=== PATIENT | male | born 1960 | race Caucasian/White ===

== ENCOUNTER 2022-08-11 09:16 | Emergency (ER) | payer OTHER, SELFPAY ==
[2022-08-11 09:17] VITALS: BP 107/66; PULSE 64; RESP 17; TEMP 36.1; O2SAT 97; BMI 40.8
--- NOTE | 2022-08-11 09:31 | EDS_ITS ---
HPI History of Present Illness Chief Complaint: Upper Extremity Injury Detail of Chief Complaint: Injury to right small finger Informant: patient Narrative Narrative: Patient presents to the emergency department with an injury to the right small finger. Patient states that he crushed it while at work between 2 metal objects. Patient is right-hand dominant. Patient unsure of his last tetanus. Patient does not want to file this under Workmen's Comp. and states that he will pay for it. Tetanus Immunization: Unknown PFSH PFSH Home Medications phenytoin sodium extended 100 mg capsule 100 mg PO DAILY 03/17/16 [History Last Taken Unknown] sulfamethoxazole 800 mg-trimethoprim 160 mg tablet 1 tab PO BID ##20 03/17/16 [Rx Last Taken Unknown] cephalexin 500 mg capsule 500 mg PO Q6 #40 CAPSULES 08/11/22 [Rx Last Taken Unknown] hydrocodone-acetaminophen 5-325mg 5mg-325mg 1 tab PO Q4H PRN PRN Pain 2 days #15 TABLETS 08/11/22 [Rx Last Taken Unknown] Allergy/AdvReac Type Severity Reaction Status Date / Time No Known Allergies Allergy Verified 08/11/22 09:16 Social History Smoking Status: Never smoker ROS ROS ED Review of Systems ROS Unobtainable: other Constitutional Constitutional ED: Reports lethargy; Denies chills, fever(s), sweats or weight loss Eyes Eyes: Denies blurry vision, change in vision or diplopia ENT ENT ED: Denies rhinorrhea or sore throat Cardiovascular Cardiovascular: Denies chest pain, orthopnea or racing heartbeat Respiratory/Chest Respiratory/Chest: Denies cough, dyspnea, dyspnea on exertion, orthopnea or sputum Gastrointestinal Gastrointestinal: Denies abdominal pain, diarrhea, nausea or vomiting Genitourinary Genitourinary ED: Denies dysuria, hematuria or urinary frequency Musculoskeletal Musculoskeletal: Reports other Details: Injury right small finger with lacerations ; Denies arthralgias, back pain, myalgias or neck pain Integumentary Denies abscess, Abrasions or rash Neurologic Neurologic: Denies headache(s) or weakness Psychiatric Psychiatric: Denies anxiety, depression or suicidal thoughts Endocrine Endocrinology: Denies polydipsia, polyphagia or polyuria Hematologic/Lymphatic Hematologic/Lymphatic: Denies easy bleeding, easy bruising or lymphadenopathy Allergic/Immunologic Allergic/Immunologic ED: Denies mouth swelling, tongue swelling or urticaria EXAM Physical Exam Const Vital Signs: 08/11/22 09:17 Temperature 96.9 F L Temperature Source Temporal Pulse Rate 64 Respiratory Rate 17 Blood Pressure 107/66 Blood Pressure Mean 79 Pulse Ox 97 Oxygen Delivery Method Room Air Positive well nourished and well developed General Appearance ED: well developed and NAD HEENT Reports TM's clear and moist mucous membranes normocephalic and atraumatic; Negative for trauma or tenderness Tympanic Membrane ED: Yes TM's clear Eyes PERRL and EOMs intact bilaterally General Eye ED: Negative for pale conjunctiva or scleral icterus Neck no lymphadenopathy, supple and no JVD General: Negative for tenderness Chest Wall inspection of chest normal and palpation of chest normal Chest: Negative for tenderness Resp normal respiratory effort and clear to auscultation bilaterally Effort and Inspection: Negative for respiratory distress or pain with movement Auscultation: Negative for rhonchi, wheezes or diminished lung sounds Cardio regular rate, regular rhythm, S1 normal heart sound, S2 normal heart sound and no murmurs Peripheral Pulses: pulses 2+ throughout GI normal to inspection, nondistended, normoactive bowel sounds, soft to palpation, non-tender, non-distended and no masses Back/Spine no CVA tenderness and no thoracic nor lumbar tenderness Extremity Extremity Narrative: Right small finger-patient has laceration over the dorsal and volar aspect of the proximal phalanx of the small finger. The laceration on the dorsal surface measures 2.5 cm and the on the volar surface 3 cm. There are some rotational deformity noted. Decreased ability to flex and extend the digits secondary to pain and deformity. He is neurovascular intact. No significant active bleeding noted. General Extremety ED: Negative for edema General Extremity: Negative for edema Neuro oriented x3, CN's II-XII intact bilaterally, no sensory deficits noted and gait normal Sensorium / Orientation: awake, alert, oriented to person, oriented to place and oriented to time Motor Exam: strength 5/5 throughout and strength abnormal Psych mental status grossly normal Skin no rashes or lesions noted and no wounds MDM MDM MDM Narrative Medical decision making narrative: Patient will receive Ancef 1 g IV. Patient is noted to have open fracture of proximal phalanx on x-ray. Please see laceration repair note. I did not appreciate any tendon involvement as far as extensor or flexor tendon. He has good strength against resistance. He had a clean dressing applied. He was given Ancef 1 g IV and tetanus booster. I will refer him to orthopedics for follow-up. He was placed in aluminum splint. He will be given work restrictions. Procedures Lacerations Right small finger lacerations: Length: 2.17 in Depth: Sub Q Shape: Linear Prep: Sterile Conditions Laceration repair: Digital block, Irrigated, Lidocaine and Skin sutures Irrigated (ml): 200 Number of Sutures/[place]: 10 Suture Information: Simple and 5-0 Discharge Plan Triage Chief Complaint: Upper Extremity Injury ED Provider: Carmina Mae Dx/Rx/DC Orders Clinical Impression: Open fracture of finger, Finger laceration Prescriptions: New hydrocodone-acetaminophen [hydrocodone-acetaminophen] 5-325 mg tablet 1 tab PO Q4H PRN PRN (Reason: Pain) 2 Days Qty: 15 0RF cephalexin [cephalexin] 500 mg capsule 500 mg PO Q6 Qty: 40 0RF No Action phenytoin sodium extended 100 MG capsule 100 mg PO DAILY sulfamethoxazole-trimethoprim 1 TABLET tablet 1 tab PO BID Qty: 20 0RF Primary Care Provider: Corey Morse Referrals: Corey Morse DO [Primary Care Provider] - Jones Bernardo MD [Med Staff - Active Staff] - 10 Day for suture removal Disposition Disposition: Home, Self Care
--- NOTE | 2022-08-11 09:40 | RAD_ITS ---
STUDY: X-RAY - RIGHT HAND, ATTENTION FIFTH FINGER REASON FOR EXAM: Male, 62 years old. Injury TECHNIQUE: 3 view(s) of the finger were obtained. COMPARISON: None. FINDINGS: Normal metacarpal head. Normal metacarpophalangeal joint. Nondisplaced, fracture through the base of the proximal phalanx of the fifth digit. Normal middle phalanx. Normal distal phalanx. Normal proximal interphalangeal joint. Normal distal interphalangeal joint. Soft tissue swelling. RAD/Finger(s) Min 2 Views IMPRESSION: Comminuted nondisplaced fracture at the base of the proximal phalanx of the fifth digit with overlying soft tissue swelling. Electronically Signed: Kunal Mccloud MD at 10:09 EDT ,
[2022-08-11 10:40] VITALS: RESP 16
[2022-08-11] MEDS: Diphth,Pertuss(Acell),Tet Vac 0.5 ML Vial IM (10:41)
[2022-08-11] MEDS: Cefazolin 1 GM/50 ML BAG IV (10:41)
[2022-08-11] MEDS: Lidocaine 1% (20 ml mdv) 20 ML Vial 8 ML INFILT (10:42)
--- NOTE | 2022-08-11 11:04 | RAD_ITS ---
STUDY: X-RAY - RIGHT HAND, ATTENTION FIFTH FINGER REASON FOR EXAM: Male, 62 years old. Post reduction TECHNIQUE: 3 view(s) of the finger were obtained. COMPARISON: None. FINDINGS: Normal metacarpal head. Normal metacarpophalangeal joint. Persistent comminuted fracture of the proximal phalanx of the fifth digit. Residual volar angulation at fracture site. Normal middle phalanx. Normal distal phalanx. Normal proximal interphalangeal joint. Normal distal interphalangeal joint. RAD/Finger(s) Min 2 Views IMPRESSION: Residual ventral angulation at the level of the fracture site in the proximal phalanx. Electronically Signed: Kunal Mccloud MD at 12:07 EDT ,
== END 2022-08-11 11:40 | disposition home or self-care (01) ==
PROVIDERS: Emergency Provider Emergency Medicine; PCP Family Medicine; Visit Provider Emergency Medicine
DX: S62.606A Fracture of unspecified phalanx of right little finger, initial encounter for closed fracture (principal); S61.216A Laceration without foreign body of right little finger without damage to nail, initial encounter; W23.0XXA Caught, crushed, jammed, or pinched between moving objects, initial encounter; Z23 Encounter for immunization
CPT/HCPCS: 12001; 73140; 90471; 90715; 96365; 99284; A4216

== ENCOUNTER 2024-03-06 14:34 | Emergency (ER) | payer SELFPAY ==
[2024-03-06 14:35] VITALS: BP 140/80; PULSE 87; RESP 17; TEMP 36.3; O2SAT 96; BMI 40.4
--- NOTE | 2024-03-06 15:37 | EDS_ITS ---
HPI History of Present Illness Chief Complaint: Anxiety Informant: patient Onset/Context/Timing Onset: Weeks (1) Context: Gradual Onset Timing: Continuous Quality: Anxious Location: Generalized Worsened by: Nothing Relieved by: Nothing Narrative Narrative: Patient presents with insomnia and anxiety that has been getting progressively worse over the past week. Patient states it is gradually getting worse. Patient states he has been on lorazepam in the past for this but states his doctor did not want to continue prescribing it long-term. Patient states nothing makes his symptoms worse and nothing makes it better. Patient denies any recent fevers or chills. Patient denies any chest pain or shortness of breath. Patient denies any nausea or vomiting. Patient states he needs some blood tests and an IV and thinks that this will help. [facility] Medical History (Updated 03/06/24 @ 19:[address] Riaz Da Silva DO) Fracture of proximal phalanx of right little finger Seizure disorder Allergy/AdvReac Type Severity Reaction Status Date / Time No Known Allergies Allergy Verified 03/06/24 14:36 Surgical History (Updated 03/06/24 @ 17:[address] Riaz Da Silva DO) History of total right knee replacement Social History Smoking Status: Never smoker ROS ROS ED Constitutional Constitutional ED: Denies chills or fever(s) Eyes Eyes: Denies blurry vision or change in vision ENT ENT ED: Denies rhinorrhea or sore throat Cardiovascular Cardiovascular: Denies chest pain or palpitations Respiratory/Chest Respiratory/Chest: Reports cough; Denies dyspnea Gastrointestinal Gastrointestinal: Denies nausea or vomiting Genitourinary Genitourinary ED: Denies dysuria or hematuria Musculoskeletal Musculoskeletal: Denies back pain or neck pain Integumentary Denies abscess or rash Neurologic Neurologic: Denies headache(s) or weakness Psychiatric Psychiatric: Reports anxiety; Denies suicidal ideation or suicidal thoughts Allergic/Immunologic Allergic/Immunologic ED: Denies mouth swelling or urticaria EXAM Physical Exam Const Vital Signs: 03/06/24 14:35 03/06/24 16:34 03/06/24 18:00 Temperature 97.4 F L Temperature Source Temporal Pulse Rate 87 68 71 Respiratory Rate 17 19 H 12 Blood Pressure 140/80 H 147/90 H 153/87 H Blood Pressure Mean 100 109 109 Pulse Ox 96 97 96 Oxygen Delivery Method Room Air Room Air Positive well nourished, well developed and obese General Appearance ED: well developed and NAD Nutritional Appearance: obese HEENT Reports moist mucous membranes Neck supple and no JVD Resp normal respiratory effort and clear to auscultation bilaterally Cardio regular rate and regular rhythm GI non-tender and non-distended Palpation: soft Extremity normal to inspection General Extremety ED: Negative for edema or tenderness General Extremity: Negative for edema Neuro oriented x3, CN's II-XII intact bilaterally and no sensory deficits noted Sensorium / Orientation: alert Motor Exam: strength 5/5 throughout Psych Mood & Affect: anxious Skin no rashes or lesions noted MDM MDM MDM Narrative Medical decision making narrative: Differential diagnosis included anxiety, back pain, dehydration, electrolyte abnormality, and anemia. CBC will be obtained to assess for leukocytosis and anemia. Basic metabolic profile will be obtained to assess for electrolyte abnormality and renal function. Lab Data Attestation: I reviewed the patient's lab results. Lab results narrative: CBC was reviewed and was within normal limits. Basic metabolic profile was reviewed and was within normal limits. Labs: Laboratory Results - last 24 hr 03/06/24 16:23 WBC 7.0 RBC 4.96 Hgb 14.5 Hct 43.0 MCV 86.7 MCH 29.2 MCHC 33.7 RDW Std Deviation 40.9 RDW Coeff of Edel 13.2 Plt Count 261 MPV 8.1 Immature Gran % (Auto) 0.400 Neut % (Auto) 65.9 Lymph % (Auto) 20.6 [place] % (Auto) 11.2 H Eos % (Auto) 1.3 Baso % (Auto) 0.6 Absolute Neuts (auto) 4.6 Absolute Lymphs (auto) 1.44 Nucleated RBC % 0 Sodium 139 Potassium 3.6 Chloride 108 H Carbon Dioxide 27.0 Anion Gap 4 L BUN 15 Creatinine 0.64 L Estim Creat Clear Calc 151.13 Est GFR (MDRD) Af Amer 164 Est GFR (MDRD) Non-Af 135 BUN/Creatinine Ratio 23.6 H Glucose 108 H Calcium 9.2 Treatment and Re-Evaluation :: Patient was given IV fluids and Benadryl here. Patient is feeling better on reevaluation. Patient is resting comfortably. Patient was instructed to follow-up with his primary care physician in 3 to 5 days for further evaluation. Patient understood and was agreeable with the plan. All questions were answered. Discharge Plan Triage Chief Complaint: Anxiety ED Provider: Riaz Da Silva Dx/Rx/DC Orders Clinical Impression: Insomnia, Acute anxiety Instructions: ED Anxiety Reaction, ED Insomnia Primary Care Provider: Corey Morse Referrals: Corey Morse DO [Primary Care Provider] - 3-5 Days Disposition Disposition: Home, Self Care
[2024-03-06] MEDS: 0.9% Normal Saline (1000mL) 1,000 ML 1000 ML IV (16:13)
[2024-03-06] MEDS: DiphenhydrAMINE 50 MG/ML Syringe 25 MG IV (16:14)
[2024-03-06 16:34] VITALS: BP 147/90; PULSE 68; RESP 19; O2SAT 97
[2024-03-06 16:52] LABS: Absolute Lymphocyte Count 1.44 X10^3/uL (0.83-4.51); Absolute Neutrophil Count 4.6 X10^3/uL (2.0-7.7); Basophil# 0.04 X10^3/uL; Basophil% 0.6 % (0-1); Eosinophil# 0.09 X10^3/uL; Eosinophils% 1.3 % (0-5); Hemoglobin 14.5 g/dL (13.0-16.5); Lymphocyte # 1.44 X10^3/ul (0.83-4.51); Lymphocyte % 20.6 % (19-41); Mean Corp Hgb Conc 33.7 g/dL (32-36); Mean Corpuscular Hgb 29.2 pg (27.0-32.0); Mean Corpuscular Volume 86.7 fL (80-94); Mean Platelet Vol. 8.1 fl (6.2-12.0); Monocyte# 0.78 X10^3/uL; Monocyte% 11.2 % (0-10); NRBC Flagged by Analyzer 0 % (0-5); Neutrophil % 65.9 % (47-70); Platelet Count 261 K/mm3 (150-450); RBC Distribution Width CV 13.2 % (11.6-14.6); RBC Distribution Width SD 40.9 fl (35.1-43.9); Red Blood Count 4.96 M/mm3 (4.6-6.2)
[2024-03-06 17:06] LABS: Anion Gap 4 (5-15); BUN 15 mg/dL (7-18); BUN/Creat Ratio 23.6 RATIO (10-20); Calcium,Total 9.2 mg/dL (8.5-10.1); Chloride 108 mmol/L (98-107); Creatinine, Serum 0.64 mg/dL (0.70-1.30); EST Glomerular Filtration Rate 135 mL/min (>60); Est Glom Filt Rate - Afr Amer 164 mL/min (>60); Estimated Creatinine Clearance 151.13 ml/min; Glucose 108 mg/dL (74-106); Potassium 3.6 mmol/L (3.5-5.1); Sodium Level 139 mmol/L (136-145)
[2024-03-06 18:00] VITALS: BP 153/87; PULSE 71; RESP 12; O2SAT 96
[2024-03-06 19:32] VITALS: BP 165/96; PULSE 67; RESP 14; TEMP 36.1; O2SAT 96
== END 2024-03-06 19:32 | disposition home or self-care (01) ==
PROVIDERS: Emergency Provider Emergency Medicine; PCP Family Medicine; Visit Provider Emergency Medicine
DX: G47.00 Insomnia, unspecified (principal); F41.9 Anxiety disorder, unspecified; E66.9 Obesity, unspecified
CPT/HCPCS: 80048; 85025; 96361; 96374; 99283; J7030